=== PATIENT | male | born 1980 | race Caucasian/White ===

== ENCOUNTER 2021-02-17 14:35 | Emergency (ER) | payer BC, MEDICAID ==
--- NOTE | 2021-02-17 15:21 | EDM.PDOC ---
ED HPI GENERAL MEDICAL PROBLEM - General Chief Complaint: Neuro Symptoms/Deficits Stated Complaint: L SIDE OF FACE NOT WORKING Time Seen by Provider: 02/17/21 15:07 Source of Information: Reports: Patient History Limitations: Reports: No Limitations - History of Present Illness INITIAL COMMENTS - FREE TEXT/NARRATIVE: The patient presents with left sided facial weakness. This started a few hours ago. He cannot fully close his left eye and he tries spitting some water out and it went out the left side of his mouth. He has no weakness or numbness in his left arm or leg. He has never had this happen before. He has no fever, chills, cough, chest pain, shortness of breath, abdominal pain, nausea or vomiting. He had chicken pox as a child. Onset: Gradual Duration: Hour(s): Severity: Moderate Improves with: Reports: None Worsens with: Reports: None Associated Symptoms: Reports: No Other Symptoms - Related Data Home Meds: Home Meds predniSONE [Prednisone] 60 mg PO DAILY #21 tablet 02/17/21 [Rx] ED ROS GENERAL - Review of Systems Review Of Systems: See Below Constitutional: Reports: No Symptoms HEENT: Reports: Other (Left sided facial weakness) Respiratory: Reports: No Symptoms Cardiovascular: Reports: No Symptoms Endocrine: Reports: No Symptoms GI/Abdominal: Reports: No Symptoms ED EXAM, NEURO - Physical Exam Exam: See Below Exam Limited By: No Limitations General Appearance: Alert, No Apparent Distress Eye Exam: Bilateral Eye: EOMI Ears: Normal External Exam Nose: Normal Inspection Head Exam: Atraumatic, Normocephalic Neck: Normal Inspection, Supple, Non-Tender Respiratory/Chest: No Respiratory Distress, Lungs Clear, Normal Breath Sounds Cardiovascular: Regular Rate, Rhythm, No Edema, No Murmur GI/Abdominal: Soft, Non-Tender, No Organomegaly, No Mass Neurological: Alert, Oriented x 3, Other (Left sided facial weakenss) Course - Vital Signs Last Recorded V/S: Last Vital Signs Temp 97.7 F 02/17/21 15:07 Pulse 111 H 02/17/21 15:07 Resp 16 02/17/21 15:07 BP 110/79 02/17/21 15:07 Pulse Ox 94 L 02/17/21 15:07 - Re-Assessments/Exams Free Text/Narrative Re-Assessment/Exam: 02/17/21 15:23 The patient has Bronson's Palsy. I will get him on some prednisone and an eye patch. Departure - Departure Time of Disposition: 15:30 Disposition: Home, Self-Care 01 Condition: Good Clinical Impression: Bronson's palsy - Discharge Information *PRESCRIPTION DRUG MONITORING PROGRAM REVIEWED*: Not Applicable *COPY OF PRESCRIPTION DRUG MONITORING REPORT IN PATIENT KELLY: Not Applicable Prescriptions: predniSONE [Prednisone] 60 mg PO DAILY #21 tablet Referrals: Leila Dooley [employer] MANAGER [Primary Care Provider] - 1 Week Forms: ED Department Discharge Additional Instructions: Take the prednisone 60mg daily for 1 week. This will raise your blood sugars for the week. Wear the eye patch at night to protect your eye and use some artificial tears through out the day to help keep your eye moist. Please return if you are worse. Sepsis Event Note (ED) - Evaluation Sepsis Screening Result: No Definite Risk - Focused Exam Vital Signs: Vital Signs Temp Pulse Resp BP Pulse Ox 02/17/21 15:07 97.7 F 111 H 16 110/79 94 L
== END 2021-02-17 15:54 | disposition home or self-care (01) ==
LOC: JD.ED 14:35
DX: G51.0 Bell's palsy (principal)
CPT/HCPCS: 99284

== ENCOUNTER 2021-08-05 20:14 | Emergency (ER) | payer MEDICAID | END 2021-08-05 21:05 | disposition home or self-care (01) | LOC: JD.ED 20:14 | DX: B02.9 Zoster without complications (principal); E78.00 Pure hypercholesterolemia, unspecified; E11.9 Type 2 diabetes mellitus without complications | CPT/HCPCS: 99282; 99283 ==